=== PATIENT | female | born 1975 | race Caucasian/White ===

== ENCOUNTER 2022-10-31 13:04 | Outpatient (CLI) | payer MEDICARE, MEDICAID, SELFPAY ==
--- NOTE | 2022-10-31 13:15 | MM_ITS ---
WS: [id number] BILATERAL 3D TOMOSYNTHESIS DIGITAL SCREENING MAMMOGRAPHY WITH CAD CLINICAL INFORMATION: SCREENING HISTORY: Screening mammogram. No current complaints. COMPARISON: TECHNIQUE: Bilateral CC and MLO views. FINDINGS: Scattered fibroglandular densities bilaterally. No suspicious focal mass, asymmetry, calcifications, or architectural distortion. No evidence of malignancy. Punctate and lucent centered calcifications. Dense vascular calcifications advanced for patient this age. Stable ovoid intramammary lymph node inn er RIGHT breast. MM/[place] [id number] IMPRESSION: BI-RADS: 2-Benign FOLLOW UP: 1 Year Follow-up Recommend return to annual screening mammography.
== END 2022-10-31 13:05 | disposition home or self-care (01) ==
LOC: RAD 13:05
PROVIDERS: PCP Nurse Practitioner Family; Visit Provider Nurse Practitioner Family
DX: Z12.31 Encounter for screening mammogram for malignant neoplasm of breast (principal)
CPT/HCPCS: 77063; 77067

== ENCOUNTER 2024-07-25 10:01 | Emergency (ER) | payer MEDICARE, MEDICAID, SELFPAY ==
[2024-07-25] VITALS (8 sets, daily range): BP systolic 120–142; BP diastolic 71–77; PULSE 71; RESP 18; TEMP 36.6; O2SAT 97–100; BMI 31.5
[2024-07-25 10:38] LABS: Basophils % 0.5 %; Eosinophils # 0.1 10^3/uL (0.0-0.8); Hematocrit 31.6 % (36-47); Lymphocytes # 1.3 10^3/uL (0.8-4.8); Lymphocytes % 22.1 %; Mean Corpuscular HGB Conc 32.3 g/dL (30-55); Mean Corpuscular Hemoglobin 31.2 pg (27-33); Mean Corpuscular Volume 96.6 fl (85-98); Mean Platelet Volume 10.2 fL (7.4-10.4); Monocytes # 0.6 10^3/uL (0.2-0.9); Monocytes % 9.4 %; Neutrophils # 3.89 10^3/uL (1.8-7.7); Neutrophils % 65.7 %; Nucleated Red Blood Cells % 0 %; Platelet Count 188 10^3/cmm (157-399); Red Blood Count 3.27 10^6/uL (3.85-5.65); Red Cell Distribution Width 15.4 % (12.1-15.1); White Blood Count 5.93 10^3/uL (3.29-11.43)
[2024-07-25 10:54] LABS: Alanine Aminotransferase 15 U/L (0-33); Albumin Level 3.7 g/dL (3.5-5.2); Alkaline Phosphatase 124 U/L (35-105); Anion Gap 12.9 (5-19); Aspartate Amino Transferase 17 U/L (0-32); Blood Urea Nitrogen 17 mg/dL (6-20); Calcium 8.3 mg/dL (8.5-10.5); Carbon Dioxide 30 mmol/L (22-29); Chloride 93 mmol/L (98-107); Creatinine Clr Calc Pharmacy 21.9581; Globulin 3.4 g/dL (1.3-4.6); Glomerular Filtration Rate 13.9 mL/min (90-130); Glucose 93 mg/dL (65-115); Osmolality Calculated 275 mOsm/kg (285-295); Potassium 3.9 mmol/L (3.5-5.1); Sodium 132 mmol/L (136-145); Total Bilirubin 0.3 mg/dL (0.15-1.2); Total Protein 7.1 g/dL (6.6-8.7)
--- NOTE | 2024-07-25 11:23 | CTR_ITS ---
PROCEDURE INFORMATION: Exam: CT Head Without Contrast Exam date and time: 07/25/2024 11:49 AM Age: 48 years old Clinical indication: Other: Numbness tingling; Patient HX: --lt sided numbness at dialysis TECHNIQUE: Imaging protocol: Computed tomography of the head without contrast. Axial, coronal and sagittal reformatted images were created and reviewed. Radiation optimization: All CT scans at this facility use at least one of these dose optimization techniques: automated exposure control; mA and/or kV adjustment per patient size (includes targeted exams where dose is matched to clinical indication); or iterative reconstruction. COMPARISON: No relevant prior studies available. RADIATION DOSE METRICS: Total DLP (mGy-cm): 1050.48 FINDINGS: Brain: Small amount of cystic encephalomalacia along the lateral aspect of the left cerebellum. No CT evidence of acute intracranial hemorrhage or acute territorial infarction. No significant mass effect or midline shift. Basal cisterns patent. Cerebral ventricles: Normal in size and configuration. Paranasal sinuses: Mild polypoid left sphenoid sinus mucosal thickening.. No fluid levels. Mastoid air cells: Grossly unremarkable. Bones: Evidence of prior left occipital craniotomy. No acute fracture. Soft tissues: Grossly unremarkable. CT/CT head wo con* [id number]: 1. No CT evidence of acute intracranial pathology. 2. Additional findings, as above.
--- NOTE | 2024-07-25 12:03 | ED_ITS ---
HPI - General Adult 2 General: Chief complaint: General Medical Stated complaint: numb/tingling in port Time Seen by Provider: 07/25/24 10:05 History of Present Illness: 48-year-old female who presents to the e mergency room via EMS from dialysis. They are finishing her dialysis she has a graft that they use for access on the left anterior thigh and groin. Will they are removing it they states she got numbness and tingling they also thought they seen some drooping on the left corner of her mouth she states she had some difficulty with her right eye and she had numbness and tingling on her left leg. All of this is resolved that was very transient. She has had no further symptoms at this point. She is fully neurologically intact. Patient had bilateral symptoms during the time of the event that she reported. Associated symptoms: Deny chest pain, dyspnea or rash Related Data Home Medications Medication Instructions Recorded Confirmed No Known Home Medications 07/25/24 07/25/24 Allergies Allergy/AdvReac Type Severity Reaction Status Date / Time vancomycin Allergy ALGY-Rash Verified 07/25/24 10:09 Review of Systems 2 Const: Denies: fever(s) or chills Card: Denies: chest pain Resp: Denies: dyspnea GI: Denies: abdominal pain : Denies: dysuria, urinary frequency or urinary urgency Musc: Denies: neck pain or back pain Skin/Breast: Denies: rash Physical Exam 2 Const: GENERAL APPEARANCE: cooperative ORIENTATION/CONSCIOUSNESS: Yes awake, Yes oriented to person, Yes oriented to place and Yes oriented to time HENMT: COMMON NORMALS: normocephalic, atraumatic and hearing grossly normal bilaterally HEAD & SCALP: normocephalic and atraumatic Resp: COMMON NORMALS: normal respiratory effort, No retractions, No use of accessory muscles and clear to auscultation bilaterally AUSCULTATION: clear to auscultation bilaterally Cardio: COMMON NORMALS: regular rate, regular rhythm and No murmurs present (Cardio) RATE: regular rate RHYTHM: regular rhythm GI: COMMON NORMALS: Soft to palpation and No hepatosplenomegaly present A USCULTATION: Yes normoactive bowel sounds PALPATION: Yes Soft to palpation, No Tenderness to palpation present (GI), No Guarding due to palpation present (GI) and Yes No hepatosplenomegaly present Extremity: COMMON NORMALS: normal to inspection, capillary refill normal, no clubbing, cyanosis or edema, no calf tenderness and no pedal edema Neuro: SENSORIUM/ORIENTATION: Yes oriented to person, Yes oriented to place and Yes oriented to time Skin: COMMON NORMALS: no rashes or lesions noted GENERAL SKIN EXAM: no rashes or lesions noted Course 2 Vital Signs: Vital signs: Vital Signs Temperature 97.8 F 07/25/24 10:03 Pulse Rate 71 07/25/24 13:45 Respiratory Rate 18 07/25/24 10:03 Blood Pressure 137/71 07/25/24 13:45 Pulse Oximetry 98 07/25/24 13:45 Oxygen Delivery Me thod Room Air 07/25/24 13:09 MDM - General Adult Medical Decision Making Patient presents initially her NIH score is 0. Her complaint of symptoms were on both the left and the right varying. CT unremarkable. I do not believe she had a TIA or stroke given the fact that she had these varying contralateral symptoms. She has no symptoms at this time. May have been bit of mild transient hypotension after her diuresis. Discharge patient home follow-up with primary care. Lab Data 07/25/24 10:13 07/25/24 10:[address] 07/25/24 11:[address]: [address] evidence of acute intracranial pathology. 2. Additional findings, as above. Laboratory Results WBC 5.93 10^3/uL (3.29-11.43) 07/25/24 10:13 RBC 3.27 10^6/uL (3.85-5.65) L 07/25/24 10:13 Hgb 10.20 g/dL (11.27-16.99) L 07/25/24 10:13 Hct 31.6 % (36-47) L 07/25/24 10:13 MCV 96.6 fl (85-98) 07/25/24 10:13 MCH 31.2 pg (27-33) 07/25/24 10:13 MCHC 32.3 g/dL (30-55) 07/25/24 10:13 RDW 15.4 % (12.1-15.1) H 07/25/24 10:13 Plt Count 188 10^3/cmm (157-399) 07/25/24 10:13 MPV 10.2 fL (7.4-10.4) 07/25/24 10:13 Neut % (Auto) 65.7 % 07/25/24 10:13 Lymph % (Auto) 22.1 % 07/25/24 10:13 Morgan % (Auto) 9.4 % 07/25/24 10:13 Eos % (Auto) 2.0 % 07/25/24 10:13 Baso % (Auto) 0.5 % 07/25/24 10:13 Neut # (Auto) 3.89 10^3/uL (1.8-7.7) 07/25/24 10:13 Lymph # (Auto) 1.3 10^3/uL (0.8-4.8) 07/25/24 10:13 Morgan # (Auto) 0.6 10^3/uL (0.2-0.9) 07/25/24 10:13 Eos # (Auto) 0.1 10^3/uL (0.0-0.8) 07/25/24 10:13 Baso # (Auto) 0.0 10^3/uL (0.0-0.1) 07/25/24 10:13 Nucleated RBC % (auto) 0 % 07/25/24 10:13 Nucleated RBCs # 0.0 /100WBC 07/25/24 10:13 Sodium 132 mmol/L (136-145) L 07/25/24 10:13 Potassium 3.9 mmol/L (3.5-5.1) 07/25/24 10:13 Chloride 93 mmol/L (98-107) L 07/25/24 10:13 Carbon Dioxide 30 mmol/L (22-29) H 07/25/24 10:13 Anion Gap 12.9 (5-19) 07/25/24 10:13 BUN 17 mg/dL (6-20) 07/25/24 10:13 Creatinine 3.5 mg/dL (0.5-0.9) H 07/25/24 10:13 GFR Calculation 13.9 mL/min (90-130) L 07/25/24 10:13 Glucose 93 mg/dL (65-115) 07/25/24 10:13 Calculated Osmolality 275 mOsm/kg (285-295) L 07/25/24 10:13 Calcium 8.3 mg/dL (8.5-10.5) L 07/25/24 10:13 Total Bilirubin 0.3 mg/dL (0.15-1.2) 07/25/24 10:13 AST 17 U/L (0-32) 07/25/24 10:13 ALT 15 U/L (0-33) 07/25/24 10:13 Alkaline Phosphatase 124 U/L (35-105) H 07/25/24 10:13 Total Protein 7.1 g/dL (6.6-8.7) 07/25/24 10:13 Albumin 3.7 g/dL (3.5-5.2) 07/25/24 10:13 Globulin 3.4 g/dL (1.3-4.6) 07/25/24 10:13 All radiology interpretation(s) finalized by discharge Discharge Plan Discharge Patient Disposition: Home Clinical Impression: Near syncope, ESRD on dialysis Condition: Stable Prescriptions: No Action No Known Home Medications Discharge Orders: Discharge ED (Routine); Ordered 07/25/24 Ordered By: Darian Fan Referrals: Oriana Peterson FNP [Primary Care Provider] - Patient Instructions: Opioid Safety, Pain Management Activity Restrictions/Additional Instructions: Thank you for choosing [facility] for your healthcare needs today. It is very important that you follow up as instructed or that you return to the Emergency Department should you have concerns or if your condition changes or worsens in any way. You were seen in the emergency room after a episode of numbness. Evaluation emergency room does not show signs that you had a stroke. Suspect you may have a transient drop in your blood pressure. Follow-up with your primary care doctor as needed. CT of the head done today did not show any acute changes. Coding Level of Care Code ED [employer] for Mirela Espino NIH stroke score NIHSS Level Of Consciousness - 1a: 0 Level Of Consciousness Questions - 1b: Both Correct Level Of Consciousness Commands - 1c: Both Correct Best Gaze - 2: Normal Visual [place] - 3: No Visual Loss Facial Palsy - 4: Normal Motor Arm Right - 5: No Drift Motor Arm Left - 5: No Drift Motor Leg Right - 6: No Drift Motor Leg Left - 6: No Drift Limb Ataxia - 7: Absent Sensory - 8: Normal Best Language - 9: No Aphasia Dysarthia - 10: Normal Extinction And Inattention - 11: 0 Score Total Score: 0
== END 2024-07-25 13:45 | disposition home or self-care (01) ==
PROVIDERS: Emergency Provider Family Medicine; PCP Nurse Practitioner Family
DX: R55 Syncope and collapse (principal); N18.6 End stage renal disease; Z99.2 Dependence on renal dialysis
CPT/HCPCS: 36415; 70450; 80053; 85025; 99284

== ENCOUNTER 2024-12-15 12:14 | Outpatient (CLI) | payer MEDICARE, MEDICAID, SELFPAY ==
[2024-12-15 13:23] LABS: Hematocrit 28.7 % (36-47); Mean Corpuscular HGB Conc 32.8 g/dL (30-55); Mean Corpuscular Hemoglobin 30.3 pg (27-33); Mean Corpuscular Volume 92.6 fl (85-98); Mean Platelet Volume 10.7 fL (7.4-10.4); Platelet Count 240 10^3/cmm (157-399); Red Cell Distribution Width 15.8 % (12.1-15.1); White Blood Count 5.23 10^3/uL (3.29-11.43)
[2024-12-15 13:51] LABS: Albumin Level 3.7 g/dL (3.5-5.2); Anion Gap 23.3 (5-19); Calcium 9.1 mg/dL (8.5-10.5); Carbon Dioxide 20 mmol/L (22-29); Chloride 99 mmol/L (98-107); Glomerular Filtration Rate 12.3 mL/min (90-130); Glucose 76 mg/dL (65-115); Magnesium 1.7 mg/dL (1.7-2.3); Phosphorus 4.7 mg/dL (2.5-4.5); Potassium 3.3 mmol/L (3.5-5.1); Sodium 139 mmol/L (136-145)
[2024-12-15 14:20] LABS: Slide Review Slide Review Perform
[2024-12-15 14:21] LABS: Absolute Eosinophils 0.4 10^3/cmm (0.0-0.7); Absolute Neutrophil 4.4 10^3/cmm (1.4-6.5); Absolute Segmented Neutrophil 4.3 10/cmm (1.6-7.1); Band Neutrophils Absolute 0.1 10^3/cmm (0.0-1.2); Eosinophils 8 %; Lymphocytes 1 %; Lymphocytes Absolute 0.1 10^3/cmm (1.2-3.4); Monocytes Absolute 0.2 10^3/cmm (0.1-0.6); Platelet Estimate Normal (Normal); Segmented Neutrophils 83 %; Total Cells Counted 100 (0-100)
[2024-12-15 14:46] LABS: Blood Urea Nitrogen 88 mg/dL (6-20)
== END 2024-12-15 12:15 | disposition home or self-care (01) ==
LOC: LAB 12:19
PROVIDERS: PCP Nurse Practitioner Family
DX: Z48.22 Encounter for aftercare following kidney transplant (principal)
CPT/HCPCS: 80069; 80197; 83735; 85007; 85025

== ENCOUNTER 2024-12-19 10:05 | Outpatient (CLI) | payer MEDICARE, MEDICAID, SELFPAY ==
[2024-12-19 10:24] LABS: Basophils % 0.2 %; Eosinophils # 0.3 10^3/uL (0.0-0.8); Eosinophils % 3.1 %; Lymphocytes # 0.3 10^3/uL (0.8-4.8); Lymphocytes % 3.3 %; Mean Corpuscular HGB Conc 32.6 g/dL (30-55); Mean Corpuscular Hemoglobin 31.4 pg (27-33); Mean Corpuscular Volume 96.4 fl (85-98); Mean Platelet Volume 10.2 fL (7.4-10.4); Monocytes # 0.7 10^3/uL (0.2-0.9); Monocytes % 8.4 %; Neutrophils # 6.94 10^3/uL (1.8-7.7); Neutrophils % 80.7 %; Nucleated Red Blood Cells % 0.2 %; Platelet Count 297 10^3/cmm (157-399); Red Cell Distribution Width 15.8 % (12.1-15.1)
[2024-12-19 10:41] LABS: Albumin Level 3.6 g/dL (3.5-5.2); Anion Gap 18.4 (5-19); Blood Urea Nitrogen 77 mg/dL (6-20); Calcium 9.5 mg/dL (8.5-10.5); Carbon Dioxide 20 mmol/L (22-29); Chloride 106 mmol/L (98-107); Glomerular Filtration Rate 18.7 mL/min (90-130); Glucose 92 mg/dL (65-115); Magnesium 1.4 mg/dL (1.7-2.3); Phosphorus 3.8 mg/dL (2.5-4.5); Potassium 3.4 mmol/L (3.5-5.1); Sodium 141 mmol/L (136-145)
[2024-12-19 10:58] LABS: Urine Creatinine 100 mg/dL (28-217)
[2024-12-19 10:59] LABS: UPRO/UCREAT Ratio 0.24 mg/mg CR; Urine Protein Random 24 mg/dL
== END 2024-12-19 10:06 | disposition home or self-care (01) ==
LOC: LAB 10:07
PROVIDERS: PCP Nurse Practitioner Family; Visit Provider Nurse Practitioner Family
DX: Z48.22 Encounter for aftercare following kidney transplant (principal)
CPT/HCPCS: 80069; 80197; 82570; 83735; 84156; 85025

== ENCOUNTER 2024-12-22 09:58 | Outpatient (CLI) | payer MEDICARE, MEDICAID, SELFPAY ==
[2024-12-22 10:38] LABS: Basophils % 0.3 %; Eosinophils # 0.3 10^3/uL (0.0-0.8); Eosinophils % 2.9 %; Hematocrit 26.9 % (36-47); Lymphocytes # 0.2 10^3/uL (0.8-4.8); Lymphocytes % 1.6 %; Mean Corpuscular Hemoglobin 31.4 pg (27-33); Mean Corpuscular Volume 98.2 fl (85-98); Mean Platelet Volume 10.3 fL (7.4-10.4); Monocytes # 0.5 10^3/uL (0.2-0.9); Monocytes % 5.7 %; Neutrophils # 8.14 10^3/uL (1.8-7.7); Neutrophils % 88.2 %; Nucleated Red Blood Cells % 0 %; Platelet Count 236 10^3/cmm (157-399); Red Blood Count 2.74 10^6/uL (3.85-5.65); Red Cell Distribution Width 15.4 % (12.1-15.1); White Blood Count 9.24 10^3/uL (3.29-11.43)
[2024-12-22 10:59] LABS: Albumin Level 3.6 g/dL (3.5-5.2); Anion Gap 18.3 (5-19); Calcium 9.3 mg/dL (8.5-10.5); Carbon Dioxide 19 mmol/L (22-29); Chloride 105 mmol/L (98-107); Glomerular Filtration Rate 17.2 mL/min (90-130); Glucose 131 mg/dL (65-115); Magnesium 1.4 mg/dL (1.7-2.3); Phosphorus 4.1 mg/dL (2.5-4.5); Potassium 3.3 mmol/L (3.5-5.1); Sodium 139 mmol/L (136-145)
[2024-12-22 11:13] LABS: Blood Urea Nitrogen 83 mg/dL (6-20)
[2024-12-23 15:59] LABS: Tacrolimus, Highly Sensitive 4.4 mcg/L
== END 2024-12-22 09:59 | disposition home or self-care (01) ==
LOC: LAB 10:01
PROVIDERS: PCP Nurse Practitioner Family
DX: Z48.22 Encounter for aftercare following kidney transplant (principal)
CPT/HCPCS: 80069; 80197; 83735; 85025

== ENCOUNTER 2024-12-26 09:55 | Outpatient (CLI) | payer MEDICARE, MEDICAID, SELFPAY ==
[2024-12-26 10:13] LABS: Basophils % 0.3 %; Eosinophils # 0.2 10^3/uL (0.0-0.8); Eosinophils % 2.4 %; Hematocrit 26.8 % (36-47); Lymphocytes # 0.3 10^3/uL (0.8-4.8); Lymphocytes % 4.2 %; Mean Corpuscular Hemoglobin 30.1 pg (27-33); Mean Corpuscular Volume 97.1 fl (85-98); Mean Platelet Volume 10.7 fL (7.4-10.4); Monocytes # 0.7 10^3/uL (0.2-0.9); Monocytes % 9.2 %; Neutrophils # 6.13 10^3/uL (1.8-7.7); Neutrophils % 83.4 %; Nucleated Red Blood Cells % 0 %; Platelet Count 222 10^3/cmm (157-399); Red Blood Count 2.76 10^6/uL (3.85-5.65); Red Cell Distribution Width 15.1 % (12.1-15.1); White Blood Count 7.36 10^3/uL (3.29-11.43)
[2024-12-26 10:32] LABS: Albumin Level 3.6 g/dL (3.5-5.2); Anion Gap 16.8 (5-19); Blood Urea Nitrogen 69 mg/dL (6-20); Calcium 9.9 mg/dL (8.5-10.5); Carbon Dioxide 17 mmol/L (22-29); Chloride 105 mmol/L (98-107); Glomerular Filtration Rate 19.6 mL/min (90-130); Glucose 92 mg/dL (65-115); Magnesium 1.6 mg/dL (1.7-2.3); Phosphorus 3.5 mg/dL (2.5-4.5); Potassium 4.8 mmol/L (3.5-5.1); Sodium 134 mmol/L (136-145)
[2024-12-26 10:36] LABS: Urine Creatinine 63 mg/dL (28-217); Urine Protein Random 9 mg/dL
[2024-12-26 10:40] LABS: UPRO/UCREAT Ratio 0.14 mg/mg CR
== END 2024-12-26 09:56 | disposition home or self-care (01) ==
PROVIDERS: PCP Nurse Practitioner Family
DX: Z48.22 Encounter for aftercare following kidney transplant (principal)
CPT/HCPCS: 36415; 80069; 80197; 82570; 83735; 84156; 85025

== ENCOUNTER 2024-12-29 09:47 | Outpatient (CLI) | payer MEDICARE, MEDICAID, SELFPAY ==
[2024-12-29 10:30] LABS: Basophils % 0.5 %; Eosinophils # 0.2 10^3/uL (0.0-0.8); Eosinophils % 2.8 %; Hematocrit 28.6 % (36-47); Lymphocytes # 0.4 10^3/uL (0.8-4.8); Lymphocytes % 6.5 %; Mean Corpuscular HGB Conc 31.1 g/dL (30-55); Mean Corpuscular Hemoglobin 30.6 pg (27-33); Mean Corpuscular Volume 98.3 fl (85-98); Mean Platelet Volume 10.3 fL (7.4-10.4); Monocytes # 0.5 10^3/uL (0.2-0.9); Monocytes % 8.5 %; Neutrophils # 4.81 10^3/uL (1.8-7.7); Neutrophils % 80.7 %; Nucleated Red Blood Cells % 0 %; Platelet Count 233 10^3/cmm (157-399); Red Blood Count 2.91 10^6/uL (3.85-5.65); Red Cell Distribution Width 14.7 % (12.1-15.1); White Blood Count 5.97 10^3/uL (3.29-11.43)
[2024-12-29 10:57] LABS: Albumin Level 3.8 g/dL (3.5-5.2); Anion Gap 15.1 (5-19); Blood Urea Nitrogen 57 mg/dL (6-20); Calcium 9.7 mg/dL (8.5-10.5); Carbon Dioxide 18 mmol/L (22-29); Chloride 110 mmol/L (98-107); Glomerular Filtration Rate 21.5 mL/min (90-130); Glucose 93 mg/dL (65-115); Magnesium 1.6 mg/dL (1.7-2.3); Potassium 5.1 mmol/L (3.5-5.1); Sodium 138 mmol/L (136-145)
[2024-12-29 13:57] LABS: Urine Creatinine 4 mg/dL (28-217)
== END 2024-12-29 09:48 | disposition home or self-care (01) ==
PROVIDERS: PCP Nurse Practitioner Family
DX: Z94.0 Kidney transplant status (principal)
CPT/HCPCS: 80069; 80197; 82570; 83735; 85025

== ENCOUNTER 2025-01-02 10:11 | Outpatient (CLI) | payer MEDICARE, MEDICAID, SELFPAY ==
[2025-01-02 11:12] LABS: Basophils % 0.6 %; Eosinophils # 0.1 10^3/uL (0.0-0.8); Eosinophils % 2.3 %; Hematocrit 28.6 % (36-47); Lymphocytes # 0.5 10^3/uL (0.8-4.8); Lymphocytes % 9.8 %; Mean Corpuscular HGB Conc 31.5 g/dL (30-55); Mean Corpuscular Hemoglobin 30.7 pg (27-33); Mean Corpuscular Volume 97.6 fl (85-98); Mean Platelet Volume 10.3 fL (7.4-10.4); Monocytes # 0.5 10^3/uL (0.2-0.9); Monocytes % 9.8 %; Neutrophils # 3.69 10^3/uL (1.8-7.7); Neutrophils % 76.9 %; Nucleated Red Blood Cells % 0 %; Platelet Count 200 10^3/cmm (157-399); Red Blood Count 2.93 10^6/uL (3.85-5.65); Red Cell Distribution Width 14.5 % (12.1-15.1)
[2025-01-02 11:26] LABS: Albumin Level 3.7 g/dL (3.5-5.2); Blood Urea Nitrogen 48 mg/dL (6-20); Calcium 9.9 mg/dL (8.5-10.5); Carbon Dioxide 17 mmol/L (22-29); Chloride 110 mmol/L (98-107); Glomerular Filtration Rate 26.5 mL/min (90-130); Glucose 93 mg/dL (65-115); Magnesium 1.6 mg/dL (1.7-2.3); Sodium 139 mmol/L (136-145)
[2025-01-02 11:29] LABS: Urine Creatinine 83 mg/dL (28-217); Urine Protein Random 8 mg/dL
[2025-01-03 15:33] LABS: Tacrolimus, Highly Sensitive 9.6 mcg/L
== END 2025-01-02 10:12 | disposition home or self-care (01) ==
PROVIDERS: PCP Nurse Practitioner Family
DX: Z48.22 Encounter for aftercare following kidney transplant (principal)
CPT/HCPCS: 80069; 80197; 82570; 83735; 84156; 85025

== ENCOUNTER 2025-01-05 09:23 | Outpatient (CLI) | payer MEDICARE, MEDICAID, SELFPAY ==
[2025-01-05 10:00] LABS: Basophils % 0.8 %; Eosinophils # 0.1 10^3/uL (0.0-0.8); Eosinophils % 2.5 %; Hematocrit 28.5 % (36-47); Lymphocytes # 0.5 10^3/uL (0.8-4.8); Lymphocytes % 12.3 %; Mean Corpuscular HGB Conc 31.6 g/dL (30-55); Mean Corpuscular Hemoglobin 30.6 pg (27-33); Mean Corpuscular Volume 96.9 fl (85-98); Mean Platelet Volume 10.1 fL (7.4-10.4); Monocytes # 0.4 10^3/uL (0.2-0.9); Monocytes % 9.8 %; Neutrophils # 2.71 10^3/uL (1.8-7.7); Neutrophils % 74.1 %; Nucleated Red Blood Cells % 0 %; Platelet Count 191 10^3/cmm (157-399); Red Blood Count 2.94 10^6/uL (3.85-5.65); Red Cell Distribution Width 14.2 % (12.1-15.1); White Blood Count 3.66 10^3/uL (3.29-11.43)
[2025-01-05 10:21] LABS: Albumin Level 3.6 g/dL (3.5-5.2); Anion Gap 15.8 (5-19); Blood Urea Nitrogen 48 mg/dL (6-20); Calcium 9.8 mg/dL (8.5-10.5); Carbon Dioxide 16 mmol/L (22-29); Chloride 112 mmol/L (98-107); Glomerular Filtration Rate 23.7 mL/min (90-130); Glucose 96 mg/dL (65-115); Magnesium 1.6 mg/dL (1.7-2.3); Phosphorus 3.3 mg/dL (2.5-4.5); Potassium 4.8 mmol/L (3.5-5.1); Sodium 139 mmol/L (136-145)
[2025-01-06 15:11] LABS: Tacrolimus, Highly Sensitive 7.2 mcg/L
== END 2025-01-05 09:24 | disposition home or self-care (01) ==
LOC: LAB 09:29
PROVIDERS: PCP Nurse Practitioner Family; Visit Provider Nurse Practitioner Family
DX: Z48.22 Encounter for aftercare following kidney transplant (principal)
CPT/HCPCS: 80069; 80197; 83735; 85025

== ENCOUNTER 2025-01-06 12:04 | Outpatient (CLI) | payer MEDICARE, MEDICAID, SELFPAY ==
[2025-01-06 12:46] LABS: Bilirubin Urine Negative (Negative); Blood Urine Negative (Negative); Glucose Urine UA Negative (Normal); Ketones Urine Negative (Negative); Leukocyte Esterase Urine Negative (Negative); Nitrate Urine Negative (Negative); Protein Urine Trace (Negative); Specific Gravity, Urine 1.014 (1.005-1.030); Urine Appearance Clear (CLEAR); Urine Color Yellow (Yellow); Urobilinogen Urine 0.2 mg/dL (Negative)
[2025-01-06 12:50] LABS: Add Urine Microscopic? YES; Bacteria Urine None Seen /hpf; Hyaline Casts Urine 2.87 /lpf; RBC Urine 0-2 /hpf (0-2); Squamous Epithelial Cell Urine 0-5 /hpf (0-5); WBC Urine 0-5 /hpf (0-5)
[2025-01-06 13:09] LABS: Creatinine Body Fluid 2.23 (0.5-0.9)
== END 2025-01-06 12:05 | disposition home or self-care (01) ==
LOC: LAB 12:11
PROVIDERS: PCP Nurse Practitioner Family; Visit Provider Nurse Practitioner Family
DX: Z94.0 Kidney transplant status (principal)
CPT/HCPCS: 81001; 82570